=== PATIENT | male | born 1975 | race Caucasian/White ===

== ENCOUNTER 2019-01-12 15:08 | Emergency (ER) | payer OTHER ==
--- NOTE | 2019-01-12 15:23 | Emergency Department Record ---
History of Present Illness - General Chief Complaint: Head Injury Stated Complaint: syncope Time Seen by Provider: 01/12/19 15:16 Source: Patient, Family Mode of Arrival: Ambulatory Limitations: No limitations - History of Present Illness Initial Comments: 43 yo male presents after hitting his head on ice. He reports he was ice fishing [place]. He was working with another fisherman creating holes for fishing. He states his friend reported to him that when his friend turned around the patient was on his back on the ice not responsive. He remained this way for 2-3 minutes. The patient does not recall the events prior to waking up. He does not recall slipping, being dizzy. He does not recall the fall or why he even fell. He does recall his friend waking him. He denies any chest pain or shortness of breath. He states he has had palpitations over the years that are random. The last time this occurred was about a month ago. No CAD. He did hit the back of his head. No lacerations or other injuries. MD Complaint: Collapsed -: Hour(s) Prodromal Symptoms: None Description of Event: Other -: Minutes(s) Witnessed: Yes - by bystander (friend was there but had his back turned) Injuries Sustained Associated with Event: Head Current Symptoms: None Treatments Prior to Arrival: None - Karla Coma Scale Eye Response: (4) Open spontaneously Motor Response: (6) Obeys commands Verbal Response: (5) Oriented Karla Total: 15 - Related Data Allergies Allergy/AdvReac Type Severity Reaction Status Date / Time No Known Drug Allergies Allergy Verified 01/12/19 15:19 Review of Systems Constitutional: Denies: Chills, Fever, Malaise, Weakness Eyes: Denies: Eye discharge ENT: Denies: Congestion Respiratory: Denies: Dyspnea, Hemoptysis, Wheezes Cardiovascular: Reports: Palpitations, Syncope. Denies: Chest pain, Dyspnea on exertion, Edema Endocrine: Denies: Fatigue, Polydipsia, Polyuria Gastrointestinal: Denies: Abdominal pain, Diarrhea, Nausea, Vomiting Genitourinary: Denies: Dysuria, Frequency, Hematuria Musculoskeletal: Denies: Arthralgia, Back pain, Joint swelling, Myalgia Skin: Denies: Bruising, Change in color, Rash Neurological: Denies: Confusion, Headache, Numbness, Tingling, Tremors, Vertigo , Weakness Psychiatric: Denies: Anxiety Hematological/Lymphatic: Denies: Blood Clots, Easy bleeding, Easy bruising Physical Exam - General General Appearance: Alert, Oriented x3, Cooperative, No acute distress Limitations: No limitations - Head Head exam: negative: Atraumatic, Normal inspection Head exam detail: Contusion Image of Face/Head: 1 - slightly raised contusion, abrasion - Eye Eye exam: Normal appearance, PERRL. negative: Conjunctival injection, Scleral icterus - ENT ENT exam: Normal exam, Mucous membranes moist Ear exam: Normal external inspection Nasal Exam: Normal inspection Mouth exam: Normal external inspection Teeth exam: Normal inspection Throat exam: Normal inspection - Neck Neck exam: Normal inspection, Full ROM. negative: Tenderness - Respiratory Respiratory exam: Normal lung sounds bilaterally. negative: Respiratory distress - Cardiovascular Cardiovascular Exam: Regular rate, Normal rhythm, Normal heart sounds. negative : Diastolic murmur, Systolic murmur Peripheral Pulses: 2+: Radial (R), Radial (L) - GI/Abdominal GI/Abdominal exam: Soft. negative: Tenderness - Rectal Rectal exam: Deferred - exam: Deferred - Extremities Extremities exam: Normal inspection, Full ROM, Normal capillary refill. negative: Tenderness - Back Back exam: Denies: CVA tenderness (R), CVA tenderness (L) - Neurological Neurological exam: Alert, CN II-XII intact, Normal gait, Oriented X3. negative : Altered, Motor sensory deficit - Psychiatric Psychiatric exam: Normal affect, Normal mood - Skin Skin exam: Abrasion Course - Reevaluation(s) Reevaluation #1: The CBC and CMP are negative The Troponin is negative The HCT is negative. 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 No ectopy on the monitor 01/12/19 16:20 I discussed the results with the patient and his . The symptoms are concerning for true syncope given he has no memory of slipping or falling. Given his positive ROS for palpitations over time I recommend admission for syncope on the monitor and an ECHO tomorrow since it has been several years. I explained the benefits of the admission. The patient declined. I explained that DC home does present risks such as syncope, heart arrhythmia that would not be recorded if not on the monitor. He understands the risks of leaving and not being on the monitor if an event occurs. I explained the AMA process to document he is aware of the risks of leaving. He understands and will sign out AMA. I did inform him he could return anytime for further evaluation. A referral was placed to cardiology for outpatient follow up. 01/12/19 Medical Decision Making - Lab Data Result diagrams: 01/12/19 15:30 01/12/19 15:30 Disposition Disposition: Discharge Clinical Impression: Syncope, Head contusion Disposition: Against Medical Advice Condition: (1) Good Instructions: Syncope (ED), Against Medical Advice (ED) Additional Instructions: Call your doctor for the next available follow up appointment You have been referred to cardiology for follow up of your palpitations and syncope You are signing out AMA at this time. You may return anytime for re-evaluation Return to the ER for a recheck if worse, any new concerns or questions Take the prescriptions provided as directed Review this ER visit and the tests performed with your family doctor Referrals: DEV BECERRA M.D. [MEDICAL DOCTOR] - [facility] [Provider Group] Forms: Patient Portal Access Time of Disposition: 16:58 Quality - Quality Measures Quality Measures: N/A, Blunt Head Trauma (>2yr) - Karla Coma Scale [place] Coma Scale: Karla Coma Scale Eye Response: (4) Open spontaneously Motor Response: (6) Obeys commands Verbal Response: (5) Oriented [place] Total: 15 - Blunt Head Trauma - Adult Quality Measure: Measure #415: Utilization of CT for Minor Blunt Head Trauma ICD10 Codes Entered: Yes Was CT ordered: Yes Does Patient Have Any of the Following: No Exclusions Patient Presented Within 24 Hours of Injury: Yes [place] Score: [address] for Minor Blunt Head Trauma: < CT Done, Appropriate Indication > [G9529] Additional Inclusion Criteria: Within 24hrs (AND) GCS of 15 (AND) CT ordered. [ G9530] Indications For CT: Short-Term Memory Deficits w/Loss of Consciousness - Blood Pressure Screening Does Patient Have Any of the Following: No Blood Pressure Classification: Pre-Hypertensive BP Reading Systolic Measurement: 134 Diastolic Measurement: 89 Screening for High Blood Pressure: < Pre-Hypertensive BP, F/U Documented > [ G8950] Pre-Hypertensive Follow-up Interventions: Referral to alternative/primary care provider.
[2019-01-12 15:40] LABS: BASO % 0.3 % (0-6); EOS % 0.7 % (0-6); GRAN % 75.7 % (47-80); HEMATOCRIT 39.3 % (42.0-52.0); HEMOGLOBIN 13.7 gm/dl (14.0-18.0); LYMPH % 13.8 % (16-45); MEAN CELL VOLUME 90.6 fl (81-97); MEAN CORPUSCULAR HGB CONC 34.9 g/dl (32-36); MEAN PLATELET VOLUME 9.9 fl (7.4-10.4); MONO % 9.5 % (0-9); PLATELET COUNT 147 K/uL (130-400); RED BLOOD COUNT 4.34 M/uL (4.40-5.70); RED CELL DISTRIBUTION WIDTH 13.2 % (11.5-14.5); WHITE BLOOD COUNT W/O DIFF 6.8 K/uL (4.2-12.2)
[2019-01-12 15:42] LABS: MEAN CORPUSCULAR HEMOGLOBIN 31.5 pg (27-33)
[2019-01-12 15:54] LABS: INR 1.1; PARTIAL THROMBOPLASTIN TIME 29.1 SECONDS (24.5-39.1); PROTHROMBIN TIME (PATIENT) 10.6 SECONDS (9.5-12.1)
[2019-01-12 16:01] LABS: BLOOD UREA NITROGEN 11 mg/dL (6-20); CREATININE 0.6 mg/dL (0.7-1.2); EST GLOMERULAR FILTRATION RATE > 60 mL/min
[2019-01-12 16:02] LABS: TOTAL PROTEIN 7.4 g/dL (6.6-8.7)
[2019-01-12 16:04] LABS: GLUCOSE,RANDOM 118 mg/dL (74-109)
[2019-01-12 16:06] LABS: ALT/SGPT 41 U/L (<41); AST/SGOT 31 U/L (10.0-50.0)
[2019-01-12 16:07] LABS: ALB/GLOB RATIO 1.4 (1.1-1.8); ALBUMIN 4.3 g/dL (4.0-5.0); ALKALINE PHOSPHATASE 70 U/L (40-129)
== END 2019-01-12 17:11 | disposition left against medical advice (07) ==
LOC: ER 15:08
DX: S00.03XA Contusion of scalp, initial encounter (principal); R55 Syncope and collapse; W00.2XXA Other fall from one level to another due to ice and snow, initial encounter; I10 Essential (primary) hypertension; Y93.29 Activity, other involving ice and snow; Y92.828 Other wilderness area as the place of occurrence of the external cause
CPT/HCPCS: 70450; 80053; 84484; 85025; 85610; 85730; 93005; 93010; 99284